=== PATIENT | male | born 1965 | race Caucasian/White ===

== ENCOUNTER → 2019-09-28 | Outpatient (CLI) | payer SELFPAY ==
[2013-10-29 10:10] VITALS: BP 119/82
[~2019-09-28] MED LIST: AMOXICILLIN 8751 TAB PO; CEPHALEXIN500 M1 PO; NO HOME MEDICATIONS; NORCO 325 MG-51 TA1 PO; NORCO 325 MG-51 TAB PO
== END ==
LOC: LAB 09:12
DX: J34.89 Other specified disorders of nose and nasal sinuses (principal); H57.89 Other specified disorders of eye and adnexa; R51 Headache; Z20.828 Contact with and (suspected) exposure to other viral communicable diseases